=== PATIENT | female | born 1940 | race Native Hawaiian/Other Pacific Islander ===

== ENCOUNTER 2017-12-06 18:49 | Emergency (ER) | payer SELFPAY ==
[2017-12-06] MEDS ORDERED: NACL 0.9% 1000 ML 1,000 ML IV ONE (19:01)
[2017-12-06 19:33] LABS: Basophils % (Auto) 0.4 % (0.0-1.8); Eosinophils # (Auto) 0.2 K/mm3 (0.0-0.4); Eosinophils % (Auto) 3.3 % (0.0-4.3); Hematocrit 45.3 % (30.3-42.9); Hemoglobin 15.1 gm/dl (10.1-14.3); Lymphocytes # (Auto) 2.7 K/mm3 (1.2-5.4); Lymphocytes % (Auto) 36.2 % (13.4-35.0); Mean Corpuscular HGB Conc 33 % (30-34); Mean Corpuscular Hemoglobin 30 pg (28-32); Mean Corpuscular Volume 91 fl (79-97); Monocytes # (Auto) 0.8 K/mm3 (0.0-0.8); Monocytes % (Auto) 10.7 % (0.0-7.3); Platelet Count 310 K/mm3 (140-440); Red Blood Count 4.99 M/mm3 (3.65-5.03); Red Cell Distribution Width 15.2 % (13.2-15.2)
[2017-12-06 19:51] LABS: Alanine Aminotransferase 14 units/L (7-56); Albumin 4.3 g/dL (3.9-5); BUN/Creatinine Ratio 22; Blood Urea Nitrogen 11 mg/dL (7-17); Hemolysis Index 5; Lipase 44 units/L (13-60)
[2017-12-06 20:21] LABS: Bilirubin,Urine NEG (Negative); Blood,Urine NEG (Negative); Color,Urine Yellow (Yellow); Protein,Urine <15 mg/dL mg/dL (Negative)
--- NOTE | 2017-12-07 01:51 | Emergency Department Report ---
ED Abdominal Pain HPI - General Chief Complaint: Abdominal Pain Stated Complaint: LF SIDE ABD Time Seen by Provider: 12/07/17 01:04 Source: patient, family, per diem interpreter Mode of arrival: Ambulatory Limitations: Language Barrier - History of Present Illness Initial Comments: 77-year-old female with a past medical history of gallstones and recently diagnosed cyst to left kidney presents to the hospital complaints of left upper quadrant pain 1 month. Pain started one month ago while in [place] and was more severe at that time. Patient had ultrasound and was told that she has a cyst or kidney. Pain has improved but continues to be ntermittent, rated 5/10 in intensity, and feels like a "ball or pressure". It feels better when she holds pressure to her left upper quadrant. She denies associated symptoms including nausea, vomiting, diarrhea, dysuria, hematuria, fever, chest pain, or shortness of breath. She does state that she's been having increased urinary frequency and only a little bit of urine comes out at a time but this has also been going on 1 month. She does not have a primary care doctor. She denies abdominal surgeries. - Related Data Previous Rx's Medication Instructions Recorded Last Taken Type Ibuprofen [Motrin] 800 mg PO Q8HR PRN #30 tablet 12/07/17 Unknown Rx Nitrofurantoin Monohyd/M-Cryst 100 mg PO BID #10 capsule 12/07/17 Unknown Rx [Macrobid 100 mg Capsule] Allergies Allergy/AdvReac Type Severity Reaction Status Date / Time No Known Allergies Allergy Verified 12/06/17 18:57 ED Review of Systems ROS: Stated complaint: LF SIDE ABD Other details as noted in HPI Comment: All other systems reviewed and negative ED Past Medical Hx - Past Medical History Previous Medical History?: Yes Additional medical history: gallstones - Surgical History Past Surgical History?: Yes Additional Surgical History: left wrist sx - Social History Smoking Status: Never Smoker Substance Use Type: None - Medications Home Medications: Home Medications Medication Instructions Recorded Confirmed Last Taken Type Ibuprofen [Motrin] 800 mg PO Q8HR PRN #30 tablet 12/07/17 Unknown Rx Nitrofurantoin Monohyd/M-Cryst 100 mg PO BID #10 capsule 12/07/17 Unknown Rx [Macrobid 100 mg Capsule] ED Physical Exam - General Limitations: Language Barrier - Other Other exam information: General: No limitations, patient is alert in no acute distress Head exam: Atraumatic, normocephalic Eyes exam: Normal appearance, pupils equal reactive to light, extraocular movements intact ENT: Moist mucous membrane, normal oropharynx Neck exam: Normal inspection, full range of motion, no meningismus nontender Respiratory exam: Clear to auscultation bilateral, no wheezes, rales, crackles Cardiovascular: Normal rate and rhythm, normal heart sounds Abdomen: Soft, nondistended, and nontender, with normal bowel sounds, no rebound, or guarding Extremity: Full range of motion normal inspection no deformity Back: Normal Inspection, full range of motion, no tenderness Neurologic: Alert, oriented x3, cranial nerves intact, no motor or sensory deficit Psychiatric: normal affect, normal mood Skin: Warm, dry, intact ED Course Vital Signs 12/06/17 12/07/17 12/07/17 18:58 00:30 00:36 Temperature 98 F 98.9 F Pulse Rate 89 Respiratory 18 Rate Blood Pressure 183/89 195/91 O2 Sat by Pulse 98 95 Oximetry 12/07/17 12/07/17 12/07/17 00:37 00:46 01:00 Temperature Pulse Rate Respiratory 18 Rate Blood Pressure 195/91 187/89 O2 Sat by Pulse 100 94 92 Oximetry 12/07/17 12/07/17 12/07/17 02:34 02:45 03:01 Temperature Pulse Rate Respiratory Rate Blood Pressure 187/89 187/87 164/75 O2 Sat by Pulse 79 L Oximetry 12/07/17 03:30 Temperature Pulse Rate Respiratory Rate Blood Pressure 166/81 O2 Sat by Pulse Oximetry ED Medical Decision Making - Lab Data Result diagrams: 12/06/17 19:09 12/06/17 19:09 Lab Results 12/06/17 12/06/17 12/06/17 Range/Units 19:09 19:09 19:50 WBC 7.5 (4.5-11.0) K/mm3 RBC 4.99 (3.65-5.03) M/mm3 Hgb 15.1 H (10.1-14.3) gm/dl Hct 45.3 H (30.3-42.9) % MCV 91 (79-97) fl MCH 30 (28-32) pg MCHC 33 (30-34) % RDW 15.2 (13.2-15.2) % Plt Count 310 (140-440) K/mm3 Lymph % (Auto) 36.2 H (13.4-35.0) % [place] % (Auto) 10.7 H (0.0-7.3) % Eos % (Auto) 3.3 (0.0-4.3) % Baso % (Auto) 0.4 (0.0-1.8) % Lymph # 2.7 (1.2-5.4) K/mm3 [place] # 0.8 (0.0-0.8) K/mm3 Eos # 0.2 (0.0-0.4) K/mm3 Baso # 0.0 (0.0-0.1) K/mm3 Seg Neutrophils % 49.4 (40.0-70.0) % Seg Neutrophils # 3.7 (1.8-7.7) K/mm3 Sodium 137 (137-145) mmol/L Potassium 4.1 (3.6-5.0) mmol/L Chloride 97.2 L (98-107) mmol/L Carbon Dioxide 28 (22-30) mmol/L Anion Gap 16 mmol/L BUN 11 (7-17) mg/dL Creatinine 0.5 L (0.7-1.2) mg/dL Estimated GFR > 60 ml/min BUN/Creatinine Ratio 22 % Glucose 96 (65-100) mg/dL Calcium 10.0 (8.4-10.2) mg/dL Total Bilirubin 0.40 (0.1-1.2) mg/dL AST 19 (5-40) units/L ALT 14 (7-56) units/L Alkaline Phosphatase 93 (35-129) units/L Total Protein 7.7 (6.3-8.2) g/dL Albumin 4.3 (3.9-5) g/dL Albumin/Globulin Ratio 1.3 % Lipase 44 (13-60) units/L Urine Color Yellow (Yellow) Urine Turbidity Clear (Clear) Urine pH 8.0 H (5.0-7.0) Ur Specific [place] 1.012 (1.003-1.030) Urine Protein <15 mg/dl (Negative) mg/dL Urine Glucose (UA) Neg (Negative) mg/dL Urine Ketones Neg (Negative) mg/dL Urine Blood Neg (Negative) Urine Nitrite Neg (Negative) Urine Bilirubin Neg (Negative) Urine Urobilinogen 2.0 (<2.0) mg/dL Ur Leukocyte Esterase Sm (Negative) Urine WBC (Auto) 24.0 H (0.0-6.0) /HPF Urine RBC (Auto) 1.0 (0.0-6.0) /HPF U Epithel Cells (Auto) 74.0 H (0-13.0) /HPF Urine Mucus /HPF 12/07/17 Range/Units 02:00 WBC (4.5-11.0) K/mm3 RBC (3.65-5.03) M/mm3 Hgb (10.1-14.3) gm/dl Hct (30.3-42.9) % MCV (79-97) fl MCH (28-32) pg MCHC (30-34) % RDW (13.2-15.2) % Plt Count (140-440) K/mm3 Lymph % (Auto) (13.4-35.0) % [place] % (Auto) (0.0-7.3) % Eos % (Auto) (0.0-4.3) % Baso % (Auto) (0.0-1.8) % Lymph # (1.2-5.4) K/mm3 [place] # (0.0-0.8) K/mm3 Eos # (0.0-0.4) K/mm3 Baso # (0.0-0.1) K/mm3 Seg Neutrophils % (40.0-70.0) % Seg Neutrophils # (1.8-7.7) K/mm3 Sodium (137-145) mmol/L Potassium (3.6-5.0) mmol/L Chloride (98-107) mmol/L Carbon Dioxide (22-30) mmol/L Anion Gap mmol/L BUN (7-17) mg/dL Creatinine (0.7-1.2) mg/dL Estimated GFR ml/min BUN/Creatinine Ratio % Glucose (65-100) mg/dL Calcium (8.4-10.2) mg/dL Total Bilirubin (0.1-1.2) mg/dL AST (5-40) units/L ALT (7-56) units/L Alkaline Phosphatase (35-129) units/L Total Protein (6.3-8.2) g/dL Albumin (3.9-5) g/dL Albumin/Globulin Ratio % Lipase (13-60) units/L Urine Color Yellow (Yellow) Urine Turbidity Clear (Clear) Urine pH 7.0 (5.0-7.0) Ur Specific [place] 1.014 (1.003-1.030) Urine Protein <15 mg/dl (Negative) mg/dL Urine Glucose (UA) Neg (Negative) mg/dL Urine Ketones Neg (Negative) mg/dL Urine Blood Neg (Negative) Urine Nitrite Neg (Negative) Urine Bilirubin Neg (Negative) Urine Urobilinogen 2.0 (<2.0) mg/dL Ur Leukocyte Esterase Tr (Negative) Urine WBC (Auto) 11.0 H (0.0-6.0) /HPF Urine RBC (Auto) 3.0 (0.0-6.0) /HPF U Epithel Cells (Auto) 7.0 (0-13.0) /HPF Urine Mucus Few /HPF - Radiology Data Radiology results: report reviewed FINAL REPORT EXAM: CT ABDOMEN PELVIS WO CON HISTORY: luq pain x 1 month COMPARISON: None available. TECHNIQUE: Contiguous axial images were obtained. Additional sagittal and coronal reformatted images were obtained. FINDINGS: Partial visualization of ill-defined soft tissue along the posterior mediastinal region of the lower thorax. This extends along the anterior and anterolateral margins of the lower thoracic vertebral bodies inferiorly to the T10 level. No associated bony erosive changes. This soft tissue is of uncertain etiology and could reflect neoplasm or sequelae of prior infection. Lack of bony erosive changes makes infection less likely. Small hiatal hernia. Cholelithiasis. No gross focal inflammatory changes the gallbladder. Liver, spleen, pancreas and adrenal glands are grossly unremarkable. There is a staghorn calculus occupying the left renal pelvis causing focal dilatation of left renal pelvis measuring 4.2 x 2.5 centimeters in axial dimension and 2.8 centimeters in craniocaudal dimension. Prominent benign anterior left renal cyst measuring 9.0 x 7.5 centimeters in axial dimension. No nephrolithiasis or hydronephrosis of the right kidney. Aorta and IVC normal in caliber. Moderate calcified plaque along the aorta. No distal ureteral or urinary bladder calculi. Uterus and ovaries are grossly unremarkable. No free fluid or lymphadenopathy in the pelvic cavity. Moderate amount of stool within the majority the colon. No focal inflammatory changes the bowel. The appendix is gas -filled and normal in caliber measuring 6-7 millimeters in diameter. No adjacent fat stranding or fluid. Mild degenerative changes of the lumbar spine. Bony pelvis is grossly intact. IMPRESSION: Ill-defined soft tissue extending along the anterior prevertebral margins of the visualized mid to lower thoracic spine. This is most concerning for neoplastic process. Inflammatory/infectious process less likely. No bony erosive changes of the adjacent vertebral bodies. Prominent staghorn calculus left renal pelvis measuring 4.2 x 2.5 x 2.8 centimeters causing prominent focal dilatation of left renal pelvis. No associated inflammatory changes of the left kidney. No additional renal or ureteral calculi. No other acute findings. Cholelithiasis. No gross focal inflammatory changes the gallbladder. Large and small bowel loops normal in caliber. The appendix is normal in caliber. Moderate stool in the colon. FINAL REPORT EXAM: CT CHEST W CON HISTORY: ? preverteveral mass on ct abd/ pelvis TECHNIQUE: CT imaging obtained through the chest following intravenous administration of contrast. Transaxial, Coronal and sagittal reformats are provided. PRIORS: Noncontrast CT abdomen and pelvis of the same date FINDINGS: Heart size is within normal limits. No pericardial effusion. There is posterior mediastinal soft tissue density up lifting the aorta on axial series 2, image 70. Abnormal soft tissue is predominantly posterior to the aorta with minimal anterior/circumferential involvement. Craniocaudal extent is approximately 10 centimeters. No involvement of vertebral bodies, intervertebral discs or the spinal canal is identified. No lymphadenopathy is seen within the josseline or elsewhere in the mediastinum. Also no axillary or supraclavicular lymphadenopathy. Thoracic aorta is normal in caliber. No pneumothorax, effusion or focal airspace disease. Evaluation of fine pulmonary parenchymal detail is partially compromised by respiratory motion. The central airways are patent. No bronchiectasis. Imaged portion of the upper abdomen is remarkable for cholelithiasis and a small hiatal hernia. Please see CT abdomen and pelvis of the same date. The superficial soft tissues are unremarkable. No acute bony abnormality or worrisome osseous lesions identified. IMPRESSION: Ill-defined masslike soft tissue extending over 10 centimeters in craniocaudal dimension within the posterior mediastinum and mild noncompressive uplifting of the aorta may be due to post infectious/inflammatory fibrosing mediastinitis (most commonly sequela of histoplasmosis, TB and sarcoid) versus lymphoma or other neoplastic entity. Thoracic surgery follow-up is suggested. Correlation with any prior imaging is requested. Small hiatal hernia. - Medical Decision Making Patient has several findings on CT chest, abdomen, and pelvis that require follow-up. Patient will be covered with antibiotics for UTI but mild urinary abnormality likely secondary to staghorn calculus. Norwegian-speaking daughter at the bedside and patient provided a copy of her imaging studies to present to her follow-up physicians. Patient states that her blood pressures typically elevated when goes to the doctor. Denies a history of hypertension pt pulse ox greater than 95% without hypoxia - Differential Diagnosis renal cysts, UTI, TN, PUD, gastritis, kidney stone Critical Care Time: No Critical care attestation.: If time is entered above; I have spent that time in minutes in the direct care of this critically ill patient, excluding procedure time. ED Disposition Clinical Impression: Staghorn calculus, UTI (urinary tract infection), Mediastinal mass, Elevated blood pressure reading Disposition: TO HOME OR SELFCARE Is pt being admited?: No Does the pt Need Aspirin: No Instructions: Kidney Stones (ED), Urinary Tract Infection in Women (ED), How to Take a Blood Pressure (ED) Additional Instructions: Take the medication as prescribed. Follow-up with the urologist, primary care doctor or clinic, and thoracic surgery. You have a mass in your chest that needs further evaluation. Take the a Copy of the CAT scan results to your doctors for follow-up. Take the medications as prescribed. Return is symptoms worsen as indicated by your discharge instructions. Alcalde la medicacin segn lo prescrito. Seguimiento con el urlogo, mdico o clnica de atencin primaria y ciruga torcica. Tienes randal masa en el pecho que necesita ms evaluacin. Lleve la Copia de los resultados de la exploracin CAT a wendie mdicos para un seguimiento. Alcalde los medicamentos segn lo recetado. El regreso es sntomas que empeoran segn lo indicado por wendie instrucciones de almita . Prescriptions: Ibuprofen [Motrin] 800 mg PO Q8HR PRN #30 tablet PRN Reason: Pain , Severe (7-10) Nitrofurantoin Monohyd/M-Cryst [Macrobid 100 mg Capsule] 100 mg PO BID #10 capsule Referrals: [place], thoracic surgeon [Other] - 3-5 Days (This is the number to the [facility]. Informed them that you need follow-up with a thoracic surgeon for a mediastinal mass identified on CAT scan.) RUSSEL LOVE MD [Staff Physician] - 3-5 Days (Urologist) [facility] [Provider Group] - 3-5 Days (Primary care clinic) ANNIE RODRIGUEZ MD [Staff Physician] - 3-5 Days (Primary care doctor) Time of Disposition: 06:26 Print Language: DANISH
--- NOTE | 2017-12-07 02:06 | Cat Scan Report ---
FINAL REPORT EXAM: CT ABDOMEN PELVIS WO CON HISTORY: luq pain x 1 month COMPARISON: None available. TECHNIQUE: Contiguous axial images were obtained. Additional sagittal and coronal reformatted images were obtained. FINDINGS: Partial visualization of ill-defined soft tissue along the posterior mediastinal region of the lower thorax. This extends along the anterior and anterolateral margins of the lower thoracic vertebral bodies inferiorly to the T10 level. No associated bony erosive changes. This soft tissue is of uncertain etiology and could reflect neoplasm or sequelae of prior infection. Lack of bony erosive changes makes infection less likely. Small hiatal hernia. Cholelithiasis. No gross focal inflammatory changes the gallbladder. Liver, spleen, pancreas and adrenal glands are grossly unremarkable. There is a staghorn calculus occupying the left renal pelvis causing focal dilatation of left renal pelvis measuring 4.2 x 2.5 centimeters in axial dimension and 2.8 centimeters in craniocaudal dimension. Prominent benign anterior left renal cyst measuring 9.0 x 7.5 centimeters in axial dimension. No nephrolithiasis or hydronephrosis of the right kidney. Aorta and IVC normal in caliber. Moderate calcified plaque along the aorta. No distal ureteral or urinary bladder calculi. Uterus and ovaries are grossly unremarkable. No free fluid or lymphadenopathy in the pelvic cavity. Moderate amount of stool within the majority the colon. No focal inflammatory changes the bowel. The appendix is gas-filled and normal in caliber measuring 6-7 millimeters in diameter. No adjacent fat stranding or fluid. Mild degenerative changes of the lumbar spine. Bony pelvis is grossly intact. IMPRESSION: Ill-defined soft tissue extending along the anterior prevertebral margins of the visualized mid to lower thoracic spine. This is most concerning for neoplastic process. Inflammatory/infectious process less likely. No bony erosive changes of the adjacent vertebral bodies. Prominent staghorn calculus left renal pelvis measuring 4.2 x 2.5 x 2.8 centimeters causing prominent focal dilatation of left renal pelvis. No associated inflammatory changes of the left kidney. No additional renal or ureteral calculi. No other acute findings. Cholelithiasis. No gross focal inflammatory changes the gallbladder. Large and small bowel loops normal in caliber. The appendix is normal in caliber. Moderate stool in the colon.
[2017-12-07 02:32] LABS: Bilirubin,Urine NEG (Negative); Blood,Urine NEG (Negative); Color,Urine Yellow (Yellow); Mucus,Urine FEW /HPF; Protein,Urine <15 mg/dL mg/dL (Negative)
[2017-12-07 03:51] VITALS: BP 166/81
--- NOTE | 2017-12-07 05:28 | Cat Scan Report ---
FINAL REPORT EXAM: CT CHEST W CON HISTORY: ? preverteveral mass on ct abd/pelvis TECHNIQUE: CT imaging obtained through the chest following intravenous administration of contrast. Transaxial, Coronal and sagittal reformats are provided. PRIORS: Noncontrast CT abdomen and pelvis of the same date FINDINGS: Heart size is within normal limits. No pericardial effusion. There is posterior mediastinal soft tissue density up lifting the aorta on axial series 2, image 70. Abnormal soft tissue is predominantly posterior to the aorta with minimal anterior/circumferential involvement. Craniocaudal extent is approximately 10 centimeters. No involvement of vertebral bodies, intervertebral discs or the spinal canal is identified. No lymphadenopathy is seen within the josseline or elsewhere in the mediastinum. Also no axillary or supraclavicular lymphadenopathy. Thoracic aorta is normal in caliber. No pneumothorax, effusion or focal airspace disease. Evaluation of fine pulmonary parenchymal detail is partially compromised by respiratory motion. The central airways are patent. No bronchiectasis. Imaged portion of the upper abdomen is remarkable for cholelithiasis and a small hiatal hernia. Please see CT abdomen and pelvis of the same date. The superficial soft tissues are unremarkable. No acute bony abnormality or worrisome osseous lesions identified. IMPRESSION: Ill-defined masslike soft tissue extending over 10 centimeters in craniocaudal dimension within the posterior mediastinum and mild noncompressive uplifting of the aorta may be due to post infectious/inflammatory fibrosing mediastinitis (most commonly sequela of histoplasmosis, TB and sarcoid) versus lymphoma or other neoplastic entity. Thoracic surgery follow-up is suggested. Correlation with any prior imaging is requested. Small hiatal hernia.
== END 2017-12-07 07:00 | disposition home or self-care (01) ==
LOC: ED 18:49
DX: N39.0 Urinary tract infection, site not specified (principal); N20.0 Calculus of kidney; J98.59 Other diseases of mediastinum, not elsewhere classified; R03.0 Elevated blood-pressure reading, without diagnosis of hypertension
CPT/HCPCS: 36415; 71260; 74176; 80053; 81001; 83690; 85025; 93005; 93010; 99284; Q9967

== ENCOUNTER 2018-01-02 08:26 | Outpatient (CLI) | payer SELFPAY ==
[2018-01-02] MEDS ORDERED: LASIX ONE (09:03)
[2018-01-02] MEDS ORDERED: LASIX IV ONE (09:09)
--- NOTE | 2018-01-04 09:39 | Nuclear Medicine Report ---
Renal nuclear scan with Lasix: Left staghorn calculus. Following injection of radionuclide flow imaging of demonstrates a normal flow curve bilaterally but reduced level of flow to left kidney compared to the right. The excretion curve of the left kidney is unremarkable with no significant change on the right following injection of 20 mg of IV Lasix at approximately 18 minutes. The excretion curve on the left side plateaued at a relatively high activity level but did respond well to the Lasix injection. Renal imaging over 30 minutes demonstrates a normal right renal contour and drainage of the collecting system. The initial images of the left kidney demonstrates a diminished activity level centrally with increased activity in the central collecting system and evidence of mild hydronephrosis over time. There is diminished renal parenchymal and collecting system activity corresponding to the injection of Lasix. Split function studies indicates the right kidney contributes 59.1% and the left kidney 40.9%. Impression: Evidence of mild renal obstruction from left staghorn calculus.
== END 2018-01-02 08:27 | disposition home or self-care (01) ==
LOC: NM 08:26
PROVIDERS: ATTEND Urology
DX: N20.0 Calculus of kidney (principal)
CPT/HCPCS: 78708; A9562; J1940

== ENCOUNTER 2018-02-06 07:38 | Day surgery (SDC) | payer OTHER ==
[2018-02-06] MEDS ORDERED: SUBLIMAZE IV NR (08:09)
[2018-02-06] MEDS ORDERED: VERSED IV NR (08:09)
[2018-02-06 08:41] LABS: Basophils % (Auto) 0.5 % (0.0-1.8); Eosinophils # (Auto) 0.2 K/mm3 (0.0-0.4); Eosinophils % (Auto) 2.6 % (0.0-4.3); Hematocrit 43.6 % (30.3-42.9); Hemoglobin 14.5 gm/dl (10.1-14.3); Lymphocytes % (Auto) 29.1 % (13.4-35.0); Mean Corpuscular HGB Conc 33 % (30-34); Mean Corpuscular Hemoglobin 30 pg (28-32); Mean Corpuscular Volume 90 fl (79-97); Monocytes # (Auto) 0.6 K/mm3 (0.0-0.8); Monocytes % (Auto) 8.1 % (0.0-7.3); Platelet Count 291 K/mm3 (140-440); Red Blood Count 4.82 M/mm3 (3.65-5.03)
[2018-02-06 08:51] LABS: INR 0.94 (0.87-1.13); Partial Thromboplastin Time 29.1 Sec. (24.2-36.6)
[2018-02-06 09:26] LABS: BUN/Creatinine Ratio 28; Blood Urea Nitrogen 11 mg/dL (7-17); Calcium 9.9 mg/dL (8.4-10.2); Hemolysis Index 6
[2018-02-06] MEDS ORDERED: XYLOCAINE 1% 20 mL ONE (09:52)
--- NOTE | 2018-02-06 11:09 | Cat Scan Report ---
CT BIOPSY CHEST/NECK History colon mass. Description of procedure: Informed consent was obtained. The patient's grandson serve as an motor vehicle parts interpreter. The patient was non-Chinese speaking. Intraobserver time was 15 minutes. Sterile technique was utilized. Moderate sedation was accomplished with Versed and fentanyl. Independent cardiorespiratory monitoring by RN. The patient was sedated for [address] guidance, a 17-gauge introducer needle was advanced to the paraspinal region in the posterior mediastinum at the site of soft tissue prominence. 4 separate 1.3 cm 18-gauge core biopsies were obtained. Pathology was present and deemed the samples adequate. No complications. Impression: Successful CT-guided biopsy of an abnormal soft tissue density in the posterior mediastinum of the chest as described.
--- NOTE | 2018-02-06 13:48 | XRay Report ---
AP CHEST: HISTORY: Chest mass, recent CT-guided biopsy Recent CT-guided biopsy of a paraspinal mass was performed. Followup chest x-ray demonstrates no evidence for pneumothorax. The lungs are clear. Heart size is within normal limits. IMPRESSION: Unremarkable AP chest. No pneumothorax is visualized.
[2018-02-06 13:57] VITALS: BP 147/68
== END 2018-02-06 14:25 | disposition home or self-care (01) ==
LOC: CATHLABREC 07:38 → EDSTATUS 08:30 → CATHLABREC 14:25
PROVIDERS: ATTEND Internal Medicine
DX: C83.30 Diffuse large B-cell lymphoma, unspecified site (principal); J98.59 Other diseases of mediastinum, not elsewhere classified; Z87.891 Personal history of nicotine dependence; Z79.899 Other long term (current) drug therapy; Z98.890 Other specified postprocedural states; Z87.442 Personal history of urinary calculi
CPT/HCPCS: 20206; 36415; 71045; 77012; 80048; 85025; 85610; 85730; 88173; 88305; 88333; 88342; J2250; J3010

== ENCOUNTER 2018-02-27 09:16 | Day surgery (SDC) | payer OTHER ==
[~2018-02-27 09:16] MED LIST: ANCEF/STERILE WATER 2 GM/20 ML 2 GM/20 ML SYRINGE IV NR; NACL 0.9% 1000 ML 1,000 ML IV SCH
[2018-02-27 10:22] LABS: Basophils % (Auto) 0.4 % (0.0-1.8); Eosinophils # (Auto) 0.1 K/mm3 (0.0-0.4); Eosinophils % (Auto) 2.2 % (0.0-4.3); Hematocrit 43.5 % (30.3-42.9); Hemoglobin 14.8 gm/dl (10.1-14.3); Lymphocytes # (Auto) 1.7 K/mm3 (1.2-5.4); Lymphocytes % (Auto) 28.3 % (13.4-35.0); Mean Corpuscular HGB Conc 34 % (30-34); Mean Corpuscular Hemoglobin 31 pg (28-32); Mean Corpuscular Volume 91 fl (79-97); Monocytes # (Auto) 0.6 K/mm3 (0.0-0.8); Monocytes % (Auto) 9.8 % (0.0-7.3); Platelet Count 301 K/mm3 (140-440); Red Blood Count 4.78 M/mm3 (3.65-5.03); Red Cell Distribution Width 14.9 % (13.2-15.2)
[2018-02-27 10:33] LABS: BUN/Creatinine Ratio 18; Blood Urea Nitrogen 7 mg/dL (7-17); Hemolysis Index 14; INR 1.01 (0.87-1.13); Partial Thromboplastin Time 27.6 Sec. (24.2-36.6)
[2018-02-27] MEDS ORDERED: XYLOCAINE 2% INFILTRATI ONE (10:46)
[2018-02-27] MEDS ORDERED: NACL 0.9% 500 ML IR ONE (10:46)
--- NOTE | 2018-02-27 10:47 | Short Stay Summary ---
Short Stay Documentation Date of service: 02/27/18 - History Principal diagnosis: Left staghorn calculus Past Medical History: other Past Surgical History: Other (neck biopsy) Social history: no significant social history - Allergies and Medications Current Medications: Allergies No Known Allergies Allergy (Verified 12/06/17 18:57) Home Medications Medication Instructions Recorded Confirmed Last Taken Type Ibuprofen [Motrin] 800 mg PO Q8HR PRN #30 tablet 12/07/17 02/27/18 02/24/18 Rx 800mg Active Medications Cefazolin Sodium (Ancef/Sterile Water 2 Gm/20 Ml) 2 gm in 20 mls @ 80 mls/hr IV PREOP NR; Protocol Stop: 02/27/18 23:59 Sodium Chloride (Nacl 0.9% 1000 Ml) 1,000 mls @ 42 mls/hr IV DIRECT RONNELL - Physical exam General appearance: no acute distress Integumentary: no rash HEENT: Atraumatic Lungs: Normal air movement Breasts: deferred Heart: Regular rate Gastrointestinal: normal Female Genitourinary: deferred Rectal Exam: deferred Extremities: no ischemia Neurological: Normal gait, Normal speech - Brief post op/procedure progress note Date of procedure: 02/27/18 Pre-op diagnosis: left staghorn calculi Post-op diagnosis: same Procedure: Left nephrostomy tube Left ureteral stent Anesthesia: local Surgeon: CEDRIC WHATLEY Estimated blood loss: minimal Pathology: none Condition: stable - Disposition Condition at discharge: Good Disposition: DC-01 TO HOME OR SELFCARE Short Stay Discharge Plan Activity: advance as tolerated Weight Bearing Status: Weight Bear as Tolerated Diet: regular Wound: keep clean and dry, per your surgeon's advice Follow up with: PRIMARY MD CHRISTIANO [Primary Care Provider] - 7 Days
[2018-02-27] MEDS ORDERED: ANCEF/STERILE WATER 2 GM/20 ML 2 GM/20 ML SYRINGE IV ONE (11:11)
[2018-02-27] MEDS ORDERED: VERSED ONE (11:11)
[2018-02-27] MEDS ORDERED: SUBLIMAZE ONE (11:11)
[2018-02-27] MEDS ORDERED: HEPARIN 10,000 UNITS/10 ML ONE (11:18)
--- NOTE | 2018-02-27 11:47 | Operative Report ---
Operative Report Operative Report: Exam: Ultrasound and fluoroscopic guided placement of left nephrostomy tube, fluoroscopic guided placement of nephroureteral stent Clinical indication: Patient with staghorn calculi, ostomy tube for drainage and nephroureteral stent prior to laser lithotripsy Date: 02/27/2018 Procedure: Following an explanation of the risks, benefits and alternatives; written informed consent was obtained. The patient was brought to the injury Leading placed in prone position on the examination table. Her left back and flank were prepped and draped in the usual sterile fashion. Ultrasound of the kidney demonstrated a large renal cyst. There is minimal hydronephrosis. 2% lidocaine was used for anesthesia. Under ultrasound guidance, a posterior superior calyx was cannulated using a 15 cm 21-gauge needle. A 0.018 guidewire was advanced into the renal pelvis. The needle was removed and neck used to transition dilator placed. 0.018 guidewire was exchanged for a 0.035 guidewire. Attempts to cannulate the proximal ureter were unsuccessful and the transition dilator exchange for a 4 Kyrgyz vertebral catheter. A 0.035 Glidewire was advanced to the vertebral catheter and together the catheter guidewire used to cannulate the ureter. The catheter guidewire within advanced under fluoroscopy to the bladder. Contrast was injected through the catheter to document appropriate positioning. The catheter was removed and a 7 Kyrgyz Sheath placed. A second guidewire was then advanced and coiled within the renal pelvis. Nephroureteral stent was advanced over the guidewire that was anchored in the bladder. The distal pigtail was coiled within the bladder and the catheter brought out to the skin surface and coiled. The catheter was In a sterile dressing applied. The nephrostomy tube was then advanced over the second guidewire and positioned with the pigtail within the central aspect of the renal pelvis adjacent to the stone. Given the stones bulk, and appropriate pigtail did not form. Both catheters were securely fastened to the skin surface. The nephrostomy tube was placed to dependent drainage. The patient tolerated the procedure well. There were no immediate post procedure complications. Conscious sedation was performed under the guidance of radiologic nursing. Continuous cardiopulmonary monitoring was utilized. Impression: 1) Ultrasound and fluoroscopic guided placement of left nephrostomy tube. Fluoroscopic guided placement of nephroureteral stent. The nephroureteral stent is coiled under the bandages and sandwiched in between the 4 x 4's.
[2018-02-27 14:52] VITALS: BP 149/53
[2018-03-01] MEDS ORDERED: DILAUDID ONE (18:35)
== END 2018-02-27 15:20 | disposition home or self-care (01) ==
LOC: CATHLABREC 09:16
PROVIDERS: ATTEND Radiology Diagnostic Radiology
DX: Z43.6 Encounter for attention to other artificial openings of urinary tract (principal); N20.0 Calculus of kidney; Z79.01 Long term (current) use of anticoagulants; Z79.899 Other long term (current) drug therapy; Z87.891 Personal history of nicotine dependence; Z98.890 Other specified postprocedural states
CPT/HCPCS: 36415; 50433; 76937; 80048; 85025; 85610; 85730; 99156; C1729; C1751; C1769; C1887; C1894; J0690; J2250; J3010; J7030; 50432; J1644; Q9967

== ENCOUNTER 2018-03-01 11:30 | Observation (INO) | payer OTHER ==
[2018-03-01] MEDS ORDERED: NACL BACTERIOSTATIC INFILTRATI ONE (13:12)
[2018-03-01] MEDS ORDERED: ANCEF/STERILE WATER 2 GM/20 ML IV NR (14:00)
[2018-03-01] MEDS: LACTATED RINGERS 1,000 ML IV SCH (14:05)
--- NOTE | 2018-03-01 14:05 | Anesthesia Day of Surgery ---
Anesthesia Day of Surgery - Day of Surgery Patient Examined: Yes Patient H&P Reviewed: Yes Patient is NPO: Yes Beta Blockers: No Cardiac Clearance: No
[2018-03-01] MEDS ORDERED: ZOFRAN IV PRN ×2 (14:06→14:29)
--- NOTE | 2018-03-01 14:06 | Anesthesia Consultation ---
Anesthesia Consult and Med Hx Date of service: 03/01/18 - Airway Anesthetic Teeth Evaluation: Poor ROM Head & Neck: Adequate Mental/Hyoid Distance: Adequate Mallampati Class: Class III Intubation Access Assessment: Possibly Difficult - Pulmonary Exam CTA: Yes - Cardiac Exam Cardiac Exam: No Murmur - Pre-Operative Health Status ASA Pre-Surgery Classification: ASA3 Proposed Anesthetic Plan: General (GA with LMA ok, denies GERD, portuguese speaking , hx of HTN but no meds, no blood thinners, no CHF) - Pulmonary Hx Smoking: Yes (PAST SMOKER) Hx Sleep Apnea: No ([place] PRE SCREEN LOW RISK.) - Cardiovascular System Hx Hypertension: No (RECENTLY HBP , BUT HAS NOT BEEN DX) - Central Nervous System Hx Back Pain: Yes (FROM STONE) - Other Systems Hx Cancer: No
[2018-03-01] MEDS ORDERED: MINERAL OIL TOPICAL LIGHT TP ONE ×2 (14:27→15:35)
--- NOTE | 2018-03-01 14:28 | Post Operative Note ---
Date of procedure: 03/01/18 Pre-op diagnosis: huge L renal stone Post-op diagnosis: same Findings: as above 4 cm stone !! Procedure: L perc nephrolithotomy Anesthesia: GETA Surgeon: DIANNE ALFARO Estimated blood loss: minimal Pathology: list (stones) Specimen disposition: to lab Condition: stable Disposition: PACU
[2018-03-01] MEDS ORDERED: TYLENOL PO PRN (14:29)
[2018-03-01] MEDS ORDERED: NARCAN 0.4 MG/1 ML IV PRN (14:29)
[2018-03-01] MEDS ORDERED: XYLOCAINE MPF 2% ONE (14:34)
[2018-03-01] MEDS ORDERED: DIPRIVAN 10 MG/ML IV ONE (14:34)
[2018-03-01] MEDS ORDERED: SUBLIMAZE ONE ×2 (14:35→15:30)
[2018-03-01] MEDS ORDERED: D5W/0.45% NACL/KCL 20 MEQ 20 MEQ/1,000 ML BAG IV SCH (15:00)
[2018-03-01] MEDS ORDERED: PROAIR IH ONE (15:24)
[2018-03-01] MEDS ORDERED: NACL 0.9% 1000 ML 1,000 ML ONE (15:27)
[2018-03-01] MEDS ORDERED: ZEMURON IV ONE ×2 (15:34)
[2018-03-01] MEDS ORDERED: NEO SYNEPHRINE/NS Syringe(OR USE) IV ONE (15:38)
[2018-03-01] MEDS ORDERED: NACL 0.9% IR ONE (16:30)
[2018-03-01] MEDS ORDERED: LASIX ONE (17:22)
[2018-03-01 18:34] LABS: Basophils % (Auto) 0.3 % (0.0-1.8); Eosinophils # (Auto) 0.1 K/mm3 (0.0-0.4); Eosinophils % (Auto) 1.4 % (0.0-4.3); Hematocrit 40.4 % (30.3-42.9); Lymphocytes # (Auto) 2.5 K/mm3 (1.2-5.4); Lymphocytes % (Auto) 29.5 % (13.4-35.0); Mean Corpuscular HGB Conc 35 % (30-34); Mean Corpuscular Hemoglobin 32 pg (28-32); Mean Corpuscular Volume 91 fl (79-97); Monocytes # (Auto) 0.8 K/mm3 (0.0-0.8); Monocytes % (Auto) 9.9 % (0.0-7.3); Platelet Count 279 K/mm3 (140-440); Red Blood Count 4.44 M/mm3 (3.65-5.03); Red Cell Distribution Width 14.9 % (13.2-15.2)
[2018-03-01] MEDS: DILAUDID IV PRN ×2 (18:35→19:00)
[2018-03-01 18:46] LABS: BUN/Creatinine Ratio 12; Blood Urea Nitrogen 6 mg/dL (7-17); Calcium 9.9 mg/dL (8.4-10.2); Hemolysis Index 4
--- NOTE | 2018-03-01 20:06 | Operative Report ---
PREOPERATIVE DIAGNOSIS: Huge left renal stone over 4 cm. POSTOPERATIVE DIAGNOSIS: Huge left renal stone over 4 cm. PROCEDURE: Left percutaneous nephrolithotomy, nephrostogram with a LithoClast and ultrasound. SURGEON: Hamlet Gross MD ANESTHESIA: General. FINDINGS: This is a woman with severe intermittent left flank pain with the huge stone. Percutaneous access was obtained about a week ago. She now presents for treatment. DESCRIPTION OF PROCEDURE: The patient brought to the operating room and placed on the operating table. Following induction of anesthesia, Martin catheter was placed in the prone position, prepped and draped in usual sterile fashion. At this point, using the nephroureteral stent, a stiff wire coiled in the bladder. This was removed and we dilated this to 14-Paraguayan and then placed a safety wire. She had a nephrostomy tube, which was cut and removed without difficulty. The access went up way down into the renal pelvis. We decided to minimize the trauma, teased the balloon and a 30-Paraguayan sheath was placed over 32-Paraguayan balloon. The patient tolerated the procedure well, with no significant bleeding. Flexible nephroscopy showed the stone surrounded by clots. The clots were removed. We used the LithoClast ultrasound combination from [employer] and it took quite a while, but eventually we got 95% of the stone. There was a little rim that could be easily lithotripsied. The patient tolerated the procedure well and nephrostomy tube 22-Paraguayan was placed. It took a while because the stone was so large, we will give this specimen to the family. She was brought to recovery room, minimal blood loss, in stable condition. JOB# [id number] DON/AVIS
[2018-03-01] MEDS: MORPHINE IV PRN (21:13)
[2018-03-01] MEDS: PEPCID IV SCH (21:17)
[2018-03-01] MEDS: NORCO 5/325 PO PRN (22:52)
[2018-03-01] MEDS: ANCEF/NS 1 GM/50 ML 1 GM/50 ML BAG IV SCH (22:55)
[2018-03-02] MEDS: LACTATED RINGERS 1,000 ML IV SCH (04:40)
[2018-03-02] MEDS: ANCEF/NS 1 GM/50 ML 1 GM/50 ML BAG IV SCH (06:04)
[2018-03-02] MEDS: MORPHINE IV PRN (06:04)
--- NOTE | 2018-03-02 08:34 | Fluoroscopy Report ---
FLUOROSCOPY NEPHROSTOGRAM EXISTING LEFT FLUOROSCOPY URETER/NEPHROSTOMY DILATATION LEFT History: Left kidney stone Findings: Fluoroscopy was provided by radiology during nephrostogram by the urologist. 17 fluoroscopic images were captured. Neighborhood Coordinator images demonstrated a large stone in the left renal pelvis and a left nephrostomy tube in place. Subsequent images demonstrate removal of the stone and balloon dilatation on the left side. There is adequate draining of the collecting system on the final images. Please correlate with the procedural report as needed.
--- NOTE | 2018-03-02 08:34 | Fluoroscopy Report ---
FLUOROSCOPY NEPHROSTOGRAM EXISTING LEFT FLUOROSCOPY URETER/NEPHROSTOMY DILATATION LEFT History: Left kidney stone Findings: Fluoroscopy was provided by radiology during nephrostogram by the urologist. 17 fluoroscopic images were captured. Overhead Crane Operator images demonstrated a large stone in the left renal pelvis and a left nephrostomy tube in place. Subsequent images demonstrate removal of the stone and balloon dilatation on the left side. There is adequate draining of the collecting system on the final images. Please correlate with the procedural report as needed.
[2018-03-02] MEDS: PEPCID IV SCH (10:26)
--- NOTE | 2018-03-02 11:23 | Discharge Summary ---
Short Stay Discharge Plan Activity: other (no straining ) Weight Bearing Status: Full Weight Bearing Diet: low fat, low cholesterol, low salt Wound: change dressing Special Instructions: other (nephrostomy tube care ) Durable Medical Equipment Needed Upon Discharge: other (neph tube ) Follow up with: PRIMARY CARE, [Primary Care Provider] - 7 Days DIANNE ALFARO MD [Staff Physician] - 7 Days
--- NOTE | 2018-03-02 11:24 | Progress Note ---
Assessment and Plan wire removed looks well labs good home with NT Subjective Date of service: 03/02/18 Objective - Constitutional Vitals: Vital Signs - 12hr 03/02/18 03/02/18 03/02/18 00:14 04:17 07:25 Temperature 98.0 F 97.9 F 97.8 F Pulse Rate 86 67 61 Respiratory 18 20 18 Rate Blood Pressure 119/56 110/53 109/54 O2 Sat by Pulse 91 92 94 Oximetry 03/02/18 08:02 Temperature Pulse Rate Respiratory Rate Blood Pressure O2 Sat by Pulse 93 Oximetry General appearance: Present: no acute distress - Neck Neck: supple - Respiratory Respiratory effort: normal Extremities: no ischemia - Gastrointestinal General gastrointestinal: Present: soft, non-tender - Labs CBC & Chem 7: 03/01/18 18:23 03/01/18 18:23 Labs: Abnormal lab results 03/01/18 03/01/18 Range/Units 18:23 18:23 MCHC 35 H (30-34) % [place] % (Auto) 9.9 H (0.0-7.3) % BUN 6 L (7-17) mg/dL Creatinine 0.5 L (0.7-1.2) mg/dL Glucose 104 H (65-100) mg/dL
[2018-03-02 12:13] VITALS: BP 114/54
[2018-03-02] MEDS: NORCO 5/325 PO PRN (13:13)
== END 2018-03-02 15:45 | disposition home or self-care (01) ==
LOC: OR 11:30 → 3B-SURG 14:29
PROVIDERS: ADMIT Urology; ATTEND Urology
DX: N20.0 Calculus of kidney (principal)
CPT/HCPCS: 36415; 50081; 50431; 74485; 80048; 85025; 86850; 86900; 86901; 94760; 96365; 96366; 96375; 96376; A4217; C1726; C1769; G0378; J0690; J1170; J1940; J2270; J2370; J2704; J3010; J7030; J7120; Q9967

== ENCOUNTER 2018-05-18 12:01 | Day surgery (SDC) | payer OTHER, SELFPAY ==
[2018-05-18] MEDS ORDERED: ANCEF/STERILE WATER 2 GM/20 ML IV NR (12:22)
[2018-05-18] MEDS ORDERED: LACTATED RINGERS 1,000 ML IV SCH (12:24)
[2018-05-18] MEDS ORDERED: LACTATED RINGERS 1,000 ML ONE (12:37)
[2018-05-18] MEDS ORDERED: HEPARIN 10,000 UNITS/10 ML ONE (12:43)
[2018-05-18] MEDS ORDERED: MARCAINE 0.25% INFILTRATI ONE ×2 (12:43→16:37)
[2018-05-18] MEDS ORDERED: NACL 0.9% 100 ML ONE (12:43)
[2018-05-18] MEDS ORDERED: XYLOCAINE 1% 20 mL ONE (12:43)
--- NOTE | 2018-05-18 14:14 | Anesthesia Consultation ---
Anesthesia Consult and Med Hx Date of service: 05/18/18 - Airway Anesthetic Teeth Evaluation: Dentures ROM Head & Neck: Adequate Mental/Hyoid Distance: Adequate Mallampati Class: Class II Intubation Access Assessment: Good - Pulmonary Exam CTA: Yes - Cardiac Exam Cardiac Exam: No Murmur - Pre-Operative Health Status ASA Pre-Surgery Classification: ASA3 Proposed Anesthetic Plan: General - Pulmonary Hx Smoking: Yes (PAST SMOKER) Hx Sleep Apnea: ([place] PRE SCREEN LOW RISK.) - Other Systems Hx Cancer: Yes (Lymphoma)
[2018-05-18] MEDS ORDERED: DIPRIVAN 10 MG/ML IV ONE (16:00)
[2018-05-18] MEDS ORDERED: XYLOCAINE MPF 2% ONE (16:00)
[2018-05-18] MEDS ORDERED: DECADRON ONE (16:00)
[2018-05-18] MEDS ORDERED: ZOFRAN ONE (16:01)
[2018-05-18] MEDS ORDERED: SUBLIMAZE ONE (16:02)
[2018-05-18] MEDS ORDERED: XYLOCAINE 1% 20 mL INFILTRATI ONE (16:37)
--- NOTE | 2018-05-18 17:32 | Short Stay Summary ---
Short Stay Documentation Date of service: 05/18/18 - History Principal diagnosis: lymphoma - Allergies and Medications Current Medications: Allergies No Known Allergies Allergy (Verified 05/17/18 14:13) Home Medications Medication Instructions Recorded Confirmed Last Taken Type Ibuprofen [Motrin] 800 mg PO Q8HR PRN #30 tablet 12/07/17 03/01/18 05/11/18 Rx oxyCODONE /ACETAMINOPHEN [Percocet 1 tab PO Q6HR PRN #30 tablet 02/27/18 03/01/18 02/28/18 Rx 5/325] Active Medications Cefazolin Sodium (Ancef/Sterile Water 2 Gm/20 Ml) 2 gm IV PREOP NR Stop: 05/18/18 23:59 Lactated Ringer's (Lactated Ringers) 1,000 mls @ 75 mls/hr IV DIRECT RONNELL Stop: 05/18/18 23:59 - Brief post op/procedure progress note Date of procedure: 05/18/18 Pre-op diagnosis: lymphoma Post-op diagnosis: same Procedure: placement of left subclavian infusaport Anesthesia: BARRON local Findings: good placement of the port on post op CXR and no pneumothorax Surgeon: NEHAL GARRIDO Estimated blood loss: minimal Pathology: none Specimen disposition: other Condition: stable - Hospital course Hospital course: Pt recovered in PACU and discharged to home in stable condition. - Disposition Condition at discharge: Good Disposition: DC-01 TO HOME OR SELFCARE Short Stay Discharge Plan Activity: no restrictions Diet: regular Wound: open to air Follow up with: MICKY BENTON MD [Primary Care Provider] - 7 Days ENHAL GARRIDO DO [Staff Physician] - 14 Days
[2018-05-18 18:27] VITALS: BP 142/61
--- NOTE | 2018-05-19 08:03 | Fluoroscopy Report ---
AP CHEST: HISTORY: Lymphoma A left subclavian Kfleww-f-Antd has been inserted which terminates in the cavoatrial junction. There are mild chronic interstitial changes in both lungs but no evidence for mass, infiltrate, effusion or pneumothorax. Heart size is within normal limits. The bony structures are unremarkable. IMPRESSION: Left Zbdsok-[id number]-Tmwf placement as described. No acute process.
--- NOTE | 2018-05-19 10:11 | Operative Report ---
Operative Report Operative Report: Date of procedure: 05/18/18 Pre-op diagnosis: lymphoma Post-op diagnosis: same Procedure: placement of left subclavian infusaport Anesthesia: GETA, local Findings: good placement of the port on post op CXR and no pneumothorax Surgeon: NEHAL GARRIDO Estimated blood loss: minimal Pathology: none Specimen disposition: other Condition: stable HPI and indication: 77 yo F with newly diagnosed lymphoma was referred by Dr. Murphy (oncology) for placement of port to initiate chemotherapy. Pt was worked up as an outpatient and scheduled for port placement. Consent verified on chart. Procedure in detail: The patient was identified in the preoperative area, taken back to operating room, placed on operating table in supine position. After anesthesia was induced both arms were tucked and upper chest and neck were prepped and draped in usual sterile fashion. A timeout was performed. The was placed in Trendelenburg position. Local anesthetic was infiltrated into the skin at the intended puncture site. The LEFT subclavian vein was visualized on ultrasound and it was accessed on the first stick. There was return of dark red, nonpulsatile blood. A glidewire was threaded under fluoroscopy without resistance and positioning confirmed. The needle was then removed. Using a 15 blade, an incision was made in the LEFT upper chest and dissection carried down through the skin and subcutaneous tissue using Bovie electrocauter y. Hemostasis was achieved along the way. A pocket for the port was then created bluntly and with electrocautery. The catheter was flushed and tunneled from the pocket to the wire. A breakaway catheter/dilator sheath then inserted over the wire under fluoroscopy, and the wire and dilator removed. The catheter was then inserted through the breakaway catheter which was then removed. The catheter sat flush under the skin. Using continuous fluoroscopy, the catheter was pulled back until the tip was visualized in the right atrium. The catheter was then cut to size and the port attached in the usual fashion. The port was then sutured into place to the pre-pectoral fascia using 2-0 Vicryl interrupted sutures. The wound was irrigated and hemostasis ensured. The port was tested with heparinized saline and there was return of blood and it flushed easily. The port was then instilled with 3000 units of heparin. The deep dermal layer was then closed with interrupted 3-0 Vicryl stitches. The skin incisions were closed with 4-0 Monocryl subcuticular stitches and skin glue. Intraoperative chest x-ray did show good positioning of the port, without evidence of pneumothorax. At the end of the case, all sponge, instrument, sharp counts were correct 2. The patient was awoken from anesthesia and taken to PACU in stable condition.
== END 2018-05-18 19:10 | disposition home or self-care (01) ==
LOC: OR 12:01
PROVIDERS: ATTEND Surgery
DX: C85.90 Non-Hodgkin lymphoma, unspecified, unspecified site (principal); Z79.899 Other long term (current) drug therapy; Z87.891 Personal history of nicotine dependence; Z87.442 Personal history of urinary calculi; Z87.440 Personal history of urinary (tract) infections; Z98.890 Other specified postprocedural states
CPT/HCPCS: 36561; 77001; C1788; J0690; J1100; J1644; J2405; J2704; J3010; J7120

== ENCOUNTER 2018-05-26 10:51 | Outpatient (CLI) | payer MEDICAID, OTHER, SELFPAY | END 2018-05-26 10:52 | disposition home or self-care (01) | LOC: ECHO 10:51 | PROVIDERS: ATTEND Internal Medicine Hematology & Oncology | DX: I51.7 Cardiomegaly (principal); C85.90 Non-Hodgkin lymphoma, unspecified, unspecified site; Z87.891 Personal history of nicotine dependence | CPT/HCPCS: 93306 ==

== ENCOUNTER 2018-12-06 07:19 | Outpatient (CLI) | payer MEDICARE ==
[2018-12-06 08:51] LABS: Blood Urea Nitrogen 10 mg/dL (7-17)
--- NOTE | 2018-12-06 09:45 | Cat Scan Report ---
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 TECHNIQUE: Axial CT images were obtained through the chest after 100 cc Omnipaque [address]. [address] scans at this location are performed using CT dose reduction for ALARA by means of automated exposure contr ol. COMPARISON: CT chest 12/07/2017 FINDINGS: HEART: No significant abnormality. THORACIC AORTA: No significant abnormality. MEDIASTINUM and SHIRLENE: No lymphadenopathy. Mild soft tissue thickening is seen within the posterior me diastinum, markedly improved since previous study. No residual soft tissue thickening is seen surroun ding the descending thoracic aorta. Left subclavian Port-A-Cath has tip in SVC. LUNGS: No acute air space or interstitial disease. PLEURA: No significant pleural effusion. No pneumothorax. ADDITIONAL FINDINGS: None. UPPER ABDOMEN: Small hiatal hernia, unchanged. Multiple tiny gallstones. Simple 8.7 cm left renal cys t. SKELETAL SYSTEM: No significant abnormality. IMPRESSION: 1. Mild posterior mediastinal soft tissue thickening, markedly improved since prior study characteris tic for resolving lymphoma. 2. Small hiatal hernia and cholelithiasis. 3. No new disease. Signer Name: Breezy Ceballos MD Signed: 12/06/2018 9:40 AM Workstation Name: [id number]
== END 2018-12-06 07:20 | disposition home or self-care (01) ==
LOC: CT 07:19
PROVIDERS: ATTEND Internal Medicine Hematology & Oncology
DX: J98.59 Other diseases of mediastinum, not elsewhere classified (principal); K44.9 Diaphragmatic hernia without obstruction or gangrene
CPT/HCPCS: 36415; 71260; 82565; 84520; Q9967

== ENCOUNTER 2019-07-05 10:22 | Outpatient (CLI) | payer MEDICARE ==
--- NOTE | 2019-07-06 10:48 | PET Report ---
PET/CT HISTORY: C83.30. Staging of diffuse non-Hodgkin's lymphoma, large cell TECHNIQUE: The patient's fasting blood glucose was 106. The patient weighed 180 lbs. The patient w as injected with 13.9 mCi of FDG in the right antecubital fossa at 1110 hours and imaging was started at 1155 hours. The patient was imaged from the skull base to the thighs. All CT scans at this [facility] are performed using CT dose reduction for ALARA by means of automated exposure control. Images we re reviewed on a workstation. COMPARISON: CT chest with contrast 12/06/2018. CT abdomen pelvis with contrast 04/11/2018. FINDINGS: IMAGED BRAIN: [Physiologic FDG uptake] NECK: [Physiologic FDG uptake] CHEST WALL: [Physiologic FDG uptake] MEDIASTINUM: [Indistinct soft tissue density in the posterior mediastinum extending from the level o f the ronaldo to just above the diaphragm appears unchanged in size and contour since the CT dated 11/14. There is minimal hypermetabolic activity in this infiltrating mass with max SUV ranging from 2.2-3.3. No mediastinal adenopathy or new mediastinal mass is detected. LUNGS: [Physiologic FDG uptake] HEPATOBILIARY: [Uptake in the liver is mildly heterogeneous with background liver SUV measuring 4.8. It is a new ill-defined 4 cm hypodense mass in the anterior right hepatic lobe with max SUV measurin g 8.1. Tiny gallstones are noted in a nondilated gallbladder. PANCREAS: [Physiologic FDG uptake SPLEEN: [Physiologic FDG uptake] KIDNEYS/BLADDER: [Physiologic FDG uptake]. Large bilobed left renal cyst is again noted. Multiple sm all stones are identified in the right renal pelvis without evidence of obstruction. ADRENAL GLANDS: [Physiologic FDG uptake] GI/MESENTERY: [Physiologic FDG uptake] PELVIC VISCERA: [Physiologic FDG uptake] LYMPH NODES: [Physiologic FDG uptake] OSSEOUS STRUCTURES: [Physiologic FDG uptake] ADDITIONAL FINDINGS: [None] IMPRESSION: Previously described soft tissue density mass/thickening in the posterior mediastinum is unchanged i n appearance since the most recent CT chest and demonstrates patchy areas of hypermetabolic activity as described. There is a new ill-defined 4 cm hypermetabolic liver mass consistent with metastatic disease. Signer Name: Nic Blackmon Jr, MD Signed: 07/06/2019 10:44 AM Workstation Name: [id number]
== END 2019-07-05 10:23 | disposition home or self-care (01) ==
LOC: PET 10:22
PROVIDERS: ATTEND Radiology Radiation Oncology
DX: C83.30 Diffuse large B-cell lymphoma, unspecified site (principal); R93.422 Abnormal radiologic findings on diagnostic imaging of left kidney
CPT/HCPCS: 78815; 82962; A9552